=== PATIENT | male | born 1945 | race Caucasian/White ===

== ENCOUNTER 2016-12-27 12:12 | Day surgery (SDC) | payer MEDICARE, BC ==
--- NOTE | 2016-12-27 11:54 | PCM.PREANE ---
Preanesthetic Assessment - Anesthesia/Transfusion/Family Hx Anesthesia History: Prior Anesthesia Without Reaction Type of Anesthesia Reaction: Other (see below) Family History of Anesthesia Reaction: No Transfusion History: No Prior Transfusion(s) Type of Transfusion Reactions: Reports: Other (see below) Intubation History: Unknown - Review of Systems General: No Symptoms Pulmonary: No Symptoms (current smoker: 0.25 packs/day times 50 years.), Shortness of Breath Cardiovascular: No Symptoms (CAD noted with one stent placed in 2004/ history of HTN), Other (HTN, CAD with sten HLD) Gastrointestinal: No symptoms Neurological: No Symptoms Other: Reports: None - Physical Assessment NPO Status Date: 12/26/16 NPO Status Time: 21:20 Pulse: 64 O2 Sat by Pulse Oximetry: 96 Respiratory Rate: 16 Blood Pressure: 141/73 Temperature: 36.5 C Height: 1.78 m Weight: 92.986 kg ASA Class: 3 Mental Status: Alert & Oriented x3 Airway Class: Mallampati = 2 Dentition: Reports: Normal Dentition Thyro-Mental Finger Breadths: 3 Mouth Opening Finger Breadths: 3 ROM/Head Extension: Full Lungs: Clear to auscultation, Normal respiratory effort Cardiovascular: Regular Rate, Regular Rhythm - Lab Values: Lab values reviewed and noted with values acceptable to proceed with scheduled procedure. - Imaging/EKG Impressions: EKG: SR, PVC's, Left axis deviation, Old anterior infarct. CXR: negative 2014 Stess Test: abnormal graded exercise tolerance test suggestive of silent inferior ischemia. (Thallium portion unremarkable.) Echocardiogram: 2014 EF =60-65%/Grade II diastolic dysfunction/Mild mitral valve regurgitation/Moderately dilated left atrium. - Allergies Allergies/Adverse Reactions: Allergies Allergy/AdvReac Type Severity Reaction Status Date / Time shrimp Allergy Anaphylactic Verified 12/26/16 14:35 Shock - Anesthesia Plan Pre-Op Medication Ordered: None - Acknowledgements Anesthesia Type Planned: MAC Pt an Appropriate Candidate for the Planned Anesthesia: Yes Alternatives and Risks of Anesthesia Discussed w Pt/Guardian: Yes Pt/Guardian Understands and Agrees with Anesthesia Plan: Yes PreAnesthesia Questionnaire HEENT History: Reports: Impaired vision, Other (see below) Other HEENT History: glasses Cardiovascular History: Reports: CAD, High cholesterol, Hypertension, CA, Stents Respiratory History: Reports: None Gastrointestinal History: Reports: GERD Genitourinary History: Reports: None COOK BARBECUE History: Reports: None Neurological History: Reports: None Psychiatric History: Reports: None Endocrine/Metabolic History: Reports: None Hematologic History: Reports: None Immunologic History: Reports: None Oncologic (Cancer) History: Reports: Prostate Other Oncologic History: seed placed into prostate Dermatologic History: Reports: None - Past Surgical History Cardiovascular Surgical History: Reports: Coronary artery stent Male Surgical History: Reports: Prostate Biopsy, Other (see below) Musculoskeletal Surgical History: Reports: Arthroscopic knee, Carpal tunnel - SUBSTANCE USE Smoking Status *Q: Current Every Day Smoker Recreational Drug Use History: No - HOME MEDS Home Medications: Home Meds Aspirin 81 mg PO DAILY 04/07/16 [History] Ezetimibe [Zetia] 10 mg PO DAILY 04/07/16 [History] Nitroglycerin [Nitrostat] 0.4 mg SL ASDIRECTED PRN 04/07/16 [History] atorvaSTATin [Lipitor] 40 mg PO DAILY 04/07/16 [History] Ibuprofen [Motrin] 600 mg PO Q6H PRN 12/26/16 [History] Lisinopril [Lisinopril] 5 mg PO DAILY 12/26/16 [History] Loratadine 10 mg PO DAILY 12/26/16 [History] amLODIPine [Norvasc] 5 mg PO DAILY 12/26/16 [History] - CURRENT (IN HOUSE) MEDS Current Meds: Current Medications Lactated Ringer's (Ringers, Lactated) 1,000 mls @ 125 mls/hr IV ASDIRECTED BHAVESH Lidocaine/Sodium Bicarbonate (Buffered Lidocaine 1% In Ns 8.4%) 0.25 ml IV ONETIME PRN PRN Reason: Prior to IV Start Sodium Chloride (Saline Flush) 10 ml FLUSH ASDIRECTED PRN PRN Reason: Keep Vein Open
[~2016-12-27 12:12] MED LIST: Lactated Ringers 1,000 ML IV SCH; Lidocaine 1%/Sod Bicarbonate in NS 8.4% 1 ML Syringe IV PRN; Sodium Chloride 0.9% 10 ML Syringe FLUSH PRN
[2016-12-27] MEDS ORDERED: Propofol 200 MG/20 ML SDV ONE ×2 (13:48→14:03)
--- NOTE | 2016-12-27 14:13 | PCM48HPAN ---
Post Anesthesia Note - EVALUATION WITHIN 48HRS OF ANESTHETIC Vital Signs in Normal Range: Yes Patient Participated in Evaluation: Yes Respiratory Function Stable: Yes Airway Patent: Yes Cardiovascular Function Stable: Yes Hydration Status Stable: Yes Pain Control Satisfactory: Yes Nausea and Vomiting Control Satisfactory: Yes Mental Status Recovered: Yes
[2016-12-27 14:16] VITALS: BP 114/67
--- NOTE | 2016-12-27 14:18 | PCM.OPNOTE ---
- General Post-Op/Procedure Note Date of Surgery/Procedure: 12/27/16 Operative Procedure(s): Colonoscopy with cold forceps polypectomy Pre Op Diagnosis: Need for screening colonoscopy Post-Op Diagnosis: Colon polyps, diverticulosis, internal hemorrhoids grade 1 Anesthesia Technique: MAC Primary Surgeon: Petrona Haynes Anesthesia Provider: Ratna Chaney Pathology: 1. Transverse colon polyp 2. Sigmoid colon polyp 3. Rectal polyp Fluid Replacement, Intraop: 900 (mL) EBL in mLs: 1 Complications: None Condition: Good Free Text/Narrative:: INDICATION FOR PROCEDURE: The patient is a 71-year-old man who was referred to me by Dr. Manuel Wu for evaluation for screening colonoscopy. Performing an average risk screening colonoscopy and the associated risks of the procedure had been discussed with the patient. He had never had a colonoscopy. The patient found these risks acceptable and agreed to proceed. DESCRIPTION OF PROCEDURE: The patient was taken to the operating room and placed in left lateral decubitus position. After induction of adequate sedation , a digital rectal exam was performed which was unremarkable. The prostate was somewhat enlarged. An adult Olympus colonoscope was inserted into the rectum and guided under direct visualization to the appendiceal orifice and ileocecal valve. The scope was then slowly withdrawn through the colon. The quality of the prep was good. There were several small sessile polyps. There was one polyp in the transverse colon, this was removed in its entirety using cold forceps, there was one polyp in the sigmoid colon, this was removed using cold forceps. There was a slightly larger small to medium-sized polyp in the rectum which was removed in its entirety using cold forceps and retrieved. There was diverticulosis which was moderate to severe of the sigmoid colon. There was no evidence of angiodysplasias. The scope was withdrawn into the rectum and retroflexed. Grade I internal hemorrhoids were present. The scope was straightened, the colon was desufflated, and the scope was withdrawn. The patient was awakened from sedation and transferred to the recovery room in stable condition having tolerated the procedure well. POSTOPERATIVE PLAN: I discussed with the patient's my intraoperative findings and recommendations. He will be sent a letter regarding his pathology and the timing of his next colonoscopy.
== END 2016-12-27 14:35 | disposition home or self-care (01) ==
LOC: JD.SDS 12:12
PROVIDERS: ATTEND Surgery
PROC: 0DBP8ZX Excision of Rectum, Via Natural or Artificial Opening Endoscopic, Diagnostic (ICD-10-PCS; principal; 2016-12-27)
PROC: 0DBL8ZX Excision of Transverse Colon, Via Natural or Artificial Opening Endoscopic, Diagnostic (ICD-10-PCS; 2016-12-27)
PROC: 0DBN8ZX Excision of Sigmoid Colon, Via Natural or Artificial Opening Endoscopic, Diagnostic (ICD-10-PCS; 2016-12-27)
DX: Z12.11 Encounter for screening for malignant neoplasm of colon (principal); D12.3 Benign neoplasm of transverse colon; D12.8 Benign neoplasm of rectum; K57.30 Diverticulosis of large intestine without perforation or abscess without bleeding; K64.0 First degree hemorrhoids; Q43.8 Other specified congenital malformations of intestine
CPT/HCPCS: 45380; 88305; J7120; 00810; J2704